=== PATIENT | male | born 1980 | race Caucasian/White ===

== ENCOUNTER 2018-05-27 04:10 | Emergency (ER) | payer OTHER, SELFPAY ==
[~2018-05-27] VITALS: Ht 182.9 cm; Wt 60.3 kg
[2018-05-27 04:11] VITALS: BP 160/108
[2018-05-27] MEDS ORDERED: RITA20TA PO (04:16)
== END 2018-05-27 04:55 | disposition home or self-care (01) ==
LOC: M ED 04:10
DX: S02.5XXA Fracture of tooth (traumatic), initial encounter for closed fracture (principal); X58.XXXA Exposure to other specified factors, initial encounter; Y92.89 Other specified places as the place of occurrence of the external cause; Y93.89 Activity, other specified; F17.210 Nicotine dependence, cigarettes, uncomplicated; Z79.899 Other long term (current) drug therapy

== ENCOUNTER → 2018-10-02 | Outpatient (CLI) | payer MEDICAID ==
[~2018-10-02] MED LIST: RITA20TA PO
[2018-10-02 15:25] LABS: ALT/SGPT 78 U/L (12-78); BLOOD UREA NITROGEN 16 MG/DL (7-18); CALCIUM LEVEL 9.1 MG/DL (8.5-10.1); CARBON DIOXIDE LEVEL 30 MEQ/L (21-32); CHLORIDE LEVEL 103 MEQ/L (98-107); CREATININE FOR GFR 0.96 MG/DL (0.70-1.30); GLOMERULAR FILTRATION RATE > 60.0 (>60); GLUCOSE, FASTING 81 MG/DL (70-100); POTASSIUM SERUM 3.5 MEQ/L (3.5-5.1); SODIUM LEVEL 140 MEQ/L (136-145); TOTAL PROTEIN 7.7 GM/DL (6.4-8.2)
[2018-10-03 09:07] LABS: HEPATITIS B SURFACE ANTIBODY NEGATIVE (POSITIVE)
[2018-10-03 09:18] LABS: HEPATITIS B SURFACE ANTIGEN NEGATIVE (NEGATIVE)
[2018-10-03 09:46] LABS: HIV 1&2 SCREEN CENTAUR NEGATIVE (NEGATIVE)
[2018-10-03 09:47] LABS: HEPATITIS A ANTIBODY IGM NEGATIVE (NEGATIVE)
[2018-10-03 10:57] LABS: HEPATITIS C VIRUS ABY INDEX > 11.0 INDEX (<0.8)
[2018-10-08 00:08] LABS: HEPATITIS C QUANTITATION 612640 IU/mL (.); HEPATITIS C VIRUS GENOTYPE 3 (.)
== END ==
LOC: M LAB 13:56
PROVIDERS: ATTEND Nurse Practitioner Adult Health
DX: Z00.00 Encounter for general adult medical examination without abnormal findings (principal); F11.20 Opioid dependence, uncomplicated; B18.2 Chronic viral hepatitis C

== ENCOUNTER 2019-03-30 15:11 | Emergency (ER) | payer MEDICAID, OTHER ==
[~2019-03-30] VITALS: Ht 182.9 cm; Wt 66.6 kg
[2019-03-30] MEDS ORDERED: IBUP200C33 PO (15:26)
[2019-03-30] MEDS ORDERED: BENZOCAINE 10% 9GM TUBE (ANBESOL) TOP PRN (16:45)
[2019-03-30] MEDS ORDERED: ACETAMINOPHEN 325 MG TAB PO ONE (16:45)
[2019-03-30] MEDS ORDERED: PENICILLIN V POTASSIUM 500 MG TAB PO ONE (16:45)
[2019-03-30] MEDS ORDERED: KETOROLAC 60 MG/2 ML VIAL (J1885) IM ONE (17:00)
[2019-03-30] MEDS ORDERED: KETO10TAB PO (17:26)
[2019-03-30] MEDS ORDERED: PENI500T PO (17:38)
[2019-03-30 17:40] VITALS: BP 135/89
== END 2019-03-30 17:40 | disposition home or self-care (01) ==
LOC: M ED 15:11
DX: K08.409 Partial loss of teeth, unspecified cause, unspecified class (principal); K08.89 Other specified disorders of teeth and supporting structures; K02.9 Dental caries, unspecified; F17.200 Nicotine dependence, unspecified, uncomplicated
CPT/HCPCS: 96372; 99283; J1885

== ENCOUNTER 2019-09-04 14:33 | Emergency (ER) | payer OTHER ==
[~2019-09-04 14:33] MED LIST changes: +IBUP200C33 PO; +KETO10TAB PO; +PENI500T PO
[2019-09-04] MEDS ORDERED: DERMABOND TOPICAL SKIN ADHESIVE TOP ONE (15:30)
--- NOTE | 2019-09-04 15:43 | REP ---
Clinical: Laceration. Rule out foreign body. Technique: AP, lateral views of the left elbow. Findings: Laceration noted. No foreign body identified. No acute fracture or dislocation is appreciated. Impression: No foreign body. No acute fracture or dislocation. Electronically Signed by Teo Mathis MD 09/04/2019 03:34 P
[2019-09-04] MEDS ORDERED: BACT800T5 PO (16:03)
[2019-09-04 16:15] VITALS: BP 144/90
== END 2019-09-04 16:22 | disposition home or self-care (01) ==
LOC: M ED 14:33
DX: S51.012A Laceration without foreign body of left elbow, initial encounter (principal); S51.812A Laceration without foreign body of left forearm, initial encounter; W25.XXXA Contact with sharp glass, initial encounter; Y92.018 Other place in single-family (private) house as the place of occurrence of the external cause; L02.414 Cutaneous abscess of left upper limb; F31.9 Bipolar disorder, unspecified; F90.9 Attention-deficit hyperactivity disorder, unspecified type; F17.210 Nicotine dependence, cigarettes, uncomplicated

== ENCOUNTER 2024-10-29 10:58 | Emergency (ER) | payer OTHER ==
[~2024-10-29] VITALS: Ht 182.9 cm; Wt 56.3 kg
[~2024-10-29 10:58] MED LIST changes: +BACT800T5 PO
[2024-10-29] MEDS ORDERED: TRAZ-252 PO (11:18)
[2024-10-29] MEDS ORDERED: BUPR1FIL SL (11:18)
[2024-10-29] MEDS ORDERED: BUSP15TA47 PO (11:18)
[2024-10-29] MEDS: DERMABOND TOPICAL SKIN ADHESIVE TOP ONE (13:00)
[2024-10-29 13:27] VITALS: BP 133/86; TEMP 96.5; O2SAT 97
== END 2024-10-29 13:30 | disposition home or self-care (01) ==
LOC: M ED 12:29
DX: S61.210A Laceration without foreign body of right index finger without damage to nail, initial encounter (principal); X58.XXXA Exposure to other specified factors, initial encounter; F90.9 Attention-deficit hyperactivity disorder, unspecified type; F31.9 Bipolar disorder, unspecified; Z79.899 Other long term (current) drug therapy; Y92.009 Unspecified place in unspecified non-institutional (private) residence as the place of occurrence of the external cause; Y93.9 Activity, unspecified; Y99.9 Unspecified external cause status

== ENCOUNTER → 2024-11-14 | Outpatient (CLI) | payer OTHER ==
[~2024-11-14] MED LIST changes: +BUPR1FIL SL; +BUSP15TA47 PO; +TRAZ-252 PO
== END ==
LOC: M RAD 10:14
PROVIDERS: ATTEND Physician Assistant
DX: M25.572 Pain in left ankle and joints of left foot (principal)